=== PATIENT | male | born 1985 | race Caucasian/White ===

== ENCOUNTER 2020-05-10 17:51 | Outpatient (CLI) | payer MEDICAID ==
--- NOTE | 2020-05-10 18:54 | XRAY Report ---
PROCEDURE: Cervical Spine 2 View INDICATIONS: PAIN TECHNIQUE: 3 view(s) of the cervical spine were acquired. COMPARISON: None. FINDINGS: Bones: No fractures or dislocations to the C7-T1 level. There is straightening of normal cervical lo rdosis. The lateral masses of C1 appear intact on the odontoid view. No suspicious bony lesions. Soft tissues: No prevertebral soft tissue swelling. IMPRESSION: Straightening of normal cervical lordosis and mild degenerative endplate changes at C5-6 and C6-7 levels. No fracture or dislocation. Reviewed by: London Davidson MD on 05/10/2020 5:53 PM [facility] Approved by: London Davidson MD on 05/10/2020 5:53 PM [facility] Station ID: [id number]
--- NOTE | 2020-05-10 18:56 | XRAY Report ---
PROCEDURE: Shoulder 3 View RT INDICATIONS: RIGHT SHOULDER PAIN TECHNIQUE: 3 views of the shoulder were acquired. COMPARISON: None. FINDINGS: Bones: No fractures or dislocations. No suspicious bony lesions. Visualized ribs appear intact. Soft tissues: No suspicious soft tissue calcifications. IMPRESSION: Unremarkable radiographic examination of right shoulder. Reviewed by: London Davidson MD on 05/10/2020 5:55 PM [facility] Approved by: London Davidson MD on 05/10/2020 5:55 PM [facility] Station ID: [id number]
== END 2020-05-10 17:52 | disposition home or self-care (01) ==
LOC: DI.S 17:51
PROVIDERS: ATTEND Physician Assistant
DX: M47.22 Other spondylosis with radiculopathy, cervical region (principal); M75.41 Impingement syndrome of right shoulder